=== PATIENT | female | born 1970 | race Caucasian/White ===

== ENCOUNTER 2023-05-03 18:12 | Outpatient (CLI) | payer BC, SELFPAY | END 2023-05-03 23:59 | LOC: LAB.DROPOF 18:13 | PROVIDERS: PCP Nurse Practitioner Family; Visit Provider Nurse Practitioner Family | DX: R05.9 Cough, unspecified (principal); J02.9 Acute pharyngitis, unspecified; R51.9 Headache, unspecified; R09.81 Nasal congestion | CPT/HCPCS: 87070 ==